=== PATIENT | female | born 1995 | race Caucasian/White ===

== ENCOUNTER 2016-08-03 13:09 | Emergency (ER) | payer OTHER ==
[2016-08-03 13:54] VITALS: BP 127/81
--- NOTE | 2016-08-03 14:17 | UC ---
Skin Complaint HPI - HPI Summary HPI Summary: WOUND ON RIGHT LOWER LEG X 1 DAY NO KNOWN INJURY, MILD TENDERNESS, NO DISCHARGE - History of Current Complaint Chief Complaint: UCSkin Time Seen by Provider: 08/03/16 14:09 Stated Complaint: RIGHT LEG LACERATION Hx Obtained From: Patient Hx Last Menstrual Period: 07/05/16 Onset/Duration: Sudden Onset, Lasting Days - 1, Still Present Timing: Constant Onset Severity: Moderate Current Severity: Moderate Location: Other - RIGHT LOWER LEG Character: Redness, Painful Aggravating: Touch Alleviating: Nothing Associated Signs & Symptoms: Positive: Tenderness - Allergy/Home Medications Allergies/Adverse Reactions: Allergies Allergy/AdvReac Type Severity Reaction Status Date / Time No Known Allergies Allergy Verified 08/03/16 13:54 Home Medications: Home Medications Norethin Acet & Estrad-Fe [Shey 24 Fe 1-20 mg-Mcg(24)] 1 tab PO DAILY 08/03/16 [History Confirmed 08/03/16] Review of Systems Constitutional: Negative Skin: Negative Eyes: Negative ENT: Negative Respiratory: Negative Cardiovascular: Negative Gastrointestinal: Negative Genitourinary: Negative Motor: Negative Neurovascular: Negative Musculoskeletal: Negative Neurological: Negative Psychological: Negative All Other Systems Reviewed And Are Negative: Yes PMH/Surg Hx/FS Hx/Imm Hx Respiratory History Of: Reports: Asthma - Surgical History Surgical History: None - Family History Known Family History: Negative: Diabetes - Social History Alcohol Use: Occasionally Substance Use Type: None Smoking Status (MU): Never Smoked Tobacco Physical Exam Triage Information Reviewed: Yes Appearance: Well-Appearing, No Pain Distress, Well-Nourished Vital Signs: Initial Vital Signs Temp 97.9 F 08/03/16 13:48 Pulse 98 08/03/16 13:48 Resp 16 08/03/16 13:48 BP 127/81 08/03/16 13:48 Pulse Ox 100 08/03/16 13:48 Vital Signs Reviewed: Yes Eyes: Positive: Conjunctiva Clear ENT: Positive: Normal ENT inspection, Hearing grossly normal, Pharynx normal Neck: Positive: Supple, Nontender, No Lymphadenopathy Respiratory: Positive: Chest non-tender, Lungs clear, Normal breath sounds Cardiovascular: Positive: RRR, No Murmur, Pulses Normal Skin: Positive: Other - + SKIN ULCERATION RIGHT LOWER LEG, + ERYTHEMA, NO DISCHARGE, MILD TENDERNESS Course/Dx - Diagnoses Provider Diagnoses: WOUND RIGHT LEG Discharge - Discharge Plan Condition: Stable Disposition: HOME Prescriptions: Cephalexin CAP* [Keflex CAP*] 500 mg PO TID #30 cap Patient Education Materials: Acute Wound Care (ED), Acute Wounds (ED) Referrals: Non Staff,Doctor [Primary Care Provider] - 7 Days
== END 2016-08-03 14:22 | disposition home or self-care (01) ==
LOC: UCCORT 13:09
DX: S81.801A Unspecified open wound, right lower leg, initial encounter (principal); X58.XXXA Exposure to other specified factors, initial encounter; Y93.9 Activity, unspecified; Y92.9 Unspecified place or not applicable; J45.909 Unspecified asthma, uncomplicated
CPT/HCPCS: 99212; G0463

== ENCOUNTER 2016-08-18 16:47 | Emergency (ER) | payer OTHER ==
[2016-08-18 17:27] VITALS: BP 121/58
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
== END 2016-08-18 18:16 | disposition home or self-care (01) ==
LOC: UCCORT 16:47
DX: T65.891A Toxic effect of other specified substances, accidental (unintentional), initial encounter (principal); T24.70 Corrosion of third degree of unspecified site of lower limb, except ankle and foot; Y93.9 Activity, unspecified; Y92.9 Unspecified place or not applicable; J45.909 Unspecified asthma, uncomplicated
CPT/HCPCS: 99211; G0463